=== PATIENT | female | born 1950 | race Caucasian/White ===

== ENCOUNTER 2023-01-12 11:49 | Inpatient (IN) ==
[2023-01-12] MEDS ORDERED: PANTOPRAZOLE 40 MG VIAL IV STA (13:50)
[2023-01-12 14:02] LABS: Basophils # 0.1 10*3/uL (0.0-0.2); Basophils % 0.3 % (0.0-0.8); Eosinophils # 0.1 10*3/uL (0.0-0.87); Eosinophils % 0.6 % (0.00-10.9); Hematocrit 34.7 VOL% (35.7-47.0); Hemoglobin 10.9 GM/DL (12.0-16.0); Immature Granulocytes % 0.6 %; Immature Granulocytes Absolute 0.11 #; Lymphocytes # 2.3 10*3/uL (1.4-4.0); Lymphocytes % 13.3 % (21.3-54.2); Mean Corpuscular HGB Conc 31.4 GM/DL (32-36); Mean Corpuscular Volume 98.3 FL (87-102); Mean Platelet Volume 9.8 FL (9.6-12.0); Monocytes % 5.6 % (1.7-12.7); Neutrophils % 79.6 % (38.7-73.9); Platelet Count 233 T/CUMM (130-400); Red Blood Count 3.53 MC/CUMM (3.8-5.5); White Blood Count 17.43 T/CUMM (4-12)
[2023-01-12 14:17] LABS: Albumin 3.5 G/DL (3.4-5.0); Bilirubin,Total 0.6 MG/DL (0.20-1.00); Calcium 8.8 MG/DL (8.5-10.1); Osmolality,Calculated 298.1 MOS/KG (273-304); Potassium 4.6 MMOL/L (3.5-5.1); Total Protein 7.1 G/DL (6.4-8.2)
[2023-01-12 14:21] LABS: PT Patient Result 11.4 SECS (10.1-12.1); Partial Thromboplastin Time 27.8 SECS (23.7-32.9)
[2023-01-12] MEDS ORDERED: hydrALAZINE 20 MG/1 ML VIAL IV PRN (16:31)
[2023-01-12] MEDS ORDERED: ACETAMINOPHEN 325 MG TABLET PO PRN (16:31)
[2023-01-12] MEDS ORDERED: ONDANSETRON 4 MG/2 ML VIAL IV PRN (16:31)
[2023-01-12 18:42] LABS: Hemoglobin 9.9 GM/DL (12.0-16.0)
[2023-01-12] MEDS: SODIUM CHLORIDE 0.45% 1,000 ML IV SCH (18:42)
[2023-01-12] MEDS: PROPRANOLOL 10 MG TABLET PO SCH (20:54)
[2023-01-12] MEDS: LACTULOSE 20 GM/30 ML UDCUP PO SCH (20:55)
[2023-01-12 20:57] LABS: Bilirubin,Urine Negative (Negative); Blood, Urine Negative (Negative); Glucose,Urine (UA) Negative (Negative); Ketones,Urine Negative (Negative); Mucus,Urine Occasional /LPF (Occasional); Nitrite,Urine Negative (Negative); Protein,Urine Negative (Negative); RBC,Urine 1 /HPF (0-4); Squamous Epithelial Cell,Urine Occasional /HPF (0-10); Urine Appearance Clear (Clear); Urine Color Yellow (Yellow); Urine Specific Gravity 1.015 (1.001-1.035); Urine Urobilinogen 0.2 eU/dL (<2.0); Urine pH 5.5 (4.5-8.0)
[2023-01-12] MEDS: PANTOPRAZOLE 40 MG VIAL IV SCH (20:57)
[2023-01-13 00:56] LABS: Hematocrit 29.8 VOL% (35.7-47.0); Hemoglobin 9.4 GM/DL (12.0-16.0)
[2023-01-13] MEDS: SODIUM CHLORIDE 0.45% 1,000 ML IV SCH (04:29)
[2023-01-13 05:52] LABS: Basophils # 0.1 10*3/uL (0.0-0.2); Basophils % 0.4 % (0.0-0.8); Eosinophils # 0.3 10*3/uL (0.0-0.87); Eosinophils % 2.2 % (0.00-10.9); Hematocrit 29.8 VOL% (35.7-47.0); Hemoglobin 9.2 GM/DL (12.0-16.0); Immature Granulocytes % 0.4 %; Immature Granulocytes Absolute 0.05 #; Lymphocytes # 3.8 10*3/uL (1.4-4.0); Lymphocytes % 29.6 % (21.3-54.2); Mean Corpuscular HGB Conc 30.9 GM/DL (32-36); Mean Corpuscular Volume 100.3 FL (87-102); Monocytes # 0.8 10*3/uL (0.11-0.8); Neutrophils % 61.4 % (38.7-73.9); Platelet Count 192 T/CUMM (130-400); Red Blood Count 2.97 MC/CUMM (3.8-5.5); Red Cell Distribution Width 15.2 % (9.3-17.3); White Blood Count 12.72 T/CUMM (4-12)
[2023-01-13 06:20] LABS: Folate 9.31 NG/ML (5.38-24.0); Vitamin B12 334 PG/ML (211-911)
[2023-01-13 06:37] LABS: Calcium 8.4 MG/DL (8.5-10.1); Osmolality,Calculated 292.8 MOS/KG (273-304); Potassium 3.7 MMOL/L (3.5-5.1); Risk Ratio 5.4; Thyroid Stimulating Hormone 4.1 uIU/ml (0.358-3.74); VLDL Cholesterol 41.8 MG/DL
[2023-01-13 06:38] LABS: % Iron Saturation 18.8 % (18-50); Ferritin 35.6 ng/mL (8-252)
[2023-01-13 07:01] LABS: Sedimentation Rate-Westergren 76 MM/HR (0-30)
[2023-01-13 08:47] LABS: Hematocrit 30.7 VOL% (35.7-47.0); Hemoglobin 9.5 GM/DL (12.0-16.0)
[2023-01-13] MEDS: LACTULOSE 20 GM/30 ML UDCUP PO SCH ×2 (09:58→20:40)
[2023-01-13] MEDS: DULoxetine 30 MG CAPSULE PO SCH (09:58)
[2023-01-13] MEDS: PROPRANOLOL 10 MG TABLET PO SCH ×2 (09:58→20:40)
[2023-01-13 09:59] LABS: Hemoglobin A1 (Alkaline) 98.2 % (96.5-98.5); Hemoglobin A2 (Alkaline) 1.8 % (1.5-3.5)
[2023-01-13] MEDS: PANTOPRAZOLE 40 MG VIAL IV SCH ×2 (09:59→20:42)
[2023-01-14] MEDS: SODIUM CHLORIDE 0.45% 1,000 ML IV SCH ×2 (00:24→00:25)
[2023-01-14 05:36] LABS: Basophils % 0.3 % (0.0-0.8); Eosinophils # 0.2 10*3/uL (0.0-0.87); Eosinophils % 2.8 % (0.00-10.9); Hematocrit 25.9 VOL% (35.7-47.0); Hemoglobin 8.1 GM/DL (12.0-16.0); Immature Granulocytes % 0.5 %; Immature Granulocytes Absolute 0.04 #; Lymphocytes % 34.5 % (21.3-54.2); Mean Corpuscular HGB Conc 31.3 GM/DL (32-36); Mean Corpuscular Volume 99.6 FL (87-102); Monocytes # 0.5 10*3/uL (0.11-0.8); Monocytes % 5.3 % (1.7-12.7); Neutrophils % 56.6 % (38.7-73.9); Platelet Count 169 T/CUMM (130-400); Red Cell Distribution Width 15.2 % (9.3-17.3); White Blood Count 8.61 T/CUMM (4-12)
[2023-01-14 05:57] LABS: Calcium 7.9 MG/DL (8.5-10.1); Potassium 3.6 MMOL/L (3.5-5.1)
[2023-01-14 06:10] LABS: Free T4 (Free Thyroxine) 0.84 NG/DL (0.76-1.46)
[2023-01-14] MEDS ORDERED: LACTATED RINGERS 1,000 ML IV SCH (08:00)
[2023-01-14] MEDS ORDERED: LIDOCAINE 2% 5 ML VIAL ONE (11:32)
[2023-01-14] MEDS ORDERED: propofoL 200 MG/20 ML VIAL IV ONE (11:32)
[2023-01-14] MEDS: DULoxetine 30 MG CAPSULE PO SCH (12:53)
[2023-01-14] MEDS: PROPRANOLOL 10 MG TABLET PO SCH (12:53)
[2023-01-14] MEDS: PANTOPRAZOLE 40 MG VIAL IV SCH (12:53)
[2023-01-14] MEDS: LACTULOSE 20 GM/30 ML UDCUP PO SCH (12:53)
[2023-01-14 15:53] VITALS: BP 135/58
[2023-01-14 16:11] LABS: Hematocrit 26.6 VOL% (35.7-47.0); Hemoglobin 8.5 GM/DL (12.0-16.0)
== END 2023-01-14 16:56 | disposition home or self-care (01) | DRG 378 ==
LOC: N.ED 11:49 → SUATTDRO 16:31 → N.EDINP 16:31 → N.2E 17:18
PROVIDERS: ADMIT Internal Medicine; ATTEND Emergency Medicine